=== PATIENT | male | born 1985 | race Hispanic/Latino ===

== ENCOUNTER 2018-12-10 08:23 | Emergency (ER) | payer SELFPAY ==
[2018-12-10 09:09] LABS: Bilirubin Negative (Negative); Blood, Urine Negative (Negative); Clarity CLEAR (Clear); Glucose, Urine (Dipstick) Negative (Negative); Leukocyte Negative (Negative); Nitrite Negative (Negative); Protein, Urine (Dipstick) Negative (Neg-Trace); Specific Gravity, Urine 1.019 (1.002-1.036); Urobilinogen 0.2 mg/dL (0.2-1.0); pH, Urine 6.5 (5.0-9.0)
[2018-12-11 21:29] LABS: Chlamydia by PCR Not Detected (NotDetected); GC by PCR Not Detected (NotDetected)
== END 2018-12-10 10:05 | disposition home or self-care (01) ==
LOC: ERS 08:23
DX: N34.2 Other urethritis (principal); F17.200 Nicotine dependence, unspecified, uncomplicated
CPT/HCPCS: 81003; 87086; 87491; 87591; 99284

== ENCOUNTER 2018-12-19 07:52 | Emergency (ER) | payer SELFPAY ==
[2018-12-19 08:57] LABS: Bilirubin Negative (Negative); Blood, Urine Negative (Negative); Clarity CLEAR (Clear); Glucose, Urine (Dipstick) Negative (Negative); Leukocyte Negative (Negative); Nitrite Negative (Negative); Protein, Urine (Dipstick) Negative (Neg-Trace); Specific Gravity, Urine 1.016 (1.002-1.036); Urobilinogen 0.2 mg/dL (0.2-1.0); pH, Urine 6.5 (5.0-9.0)
--- NOTE | 2018-12-19 09:17 | ULT ---
FUS Testicular W Doppler History: [Left testicular pain] Comparison: None. Findings: There is normal echotexture and vascularity to both testicles. No mass. Both epididymides a re normal. No varicocele. Normal peritesticular fluid. Impression: Normal examination of the testicles.
[2018-12-19] MEDS ORDERED: cefTRIAXone\\ROCEPHIN 250 MG VIAL ONE (09:53)
[2018-12-19] MEDS ORDERED: Azithromycin 250 MG TAB ONE (09:53)
[2018-12-19] MEDS ORDERED: Lidocaine 1% (PF) 30 ML VIAL ONE (09:54)
[2018-12-19 19:30] LABS: Chlam.trachomatis by PCR,Urine Not Detected (NotDetected)
== END 2018-12-19 10:37 | disposition home or self-care (01) ==
LOC: ERS 07:52
DX: N50.82 Scrotal pain (principal); R30.0 Dysuria
CPT/HCPCS: 76870; 81003; 87491; 87591; 93976; 96372; J0696; J2001